=== PATIENT | male | born 1955 | race Caucasian/White ===

== ENCOUNTER 2017-12-16 05:24 | Inpatient (IN) | payer OTHER ==
[~2017-12-16] VITALS: Ht 167.6 cm; Wt 71.9 kg
[~2017-12-16 05:24] MED LIST: AMLO1TAB3 PO; GLYB-137 PO; LISI1TAB7 PO; OMEP-110 PO
[2017-12-16 06:16] LABS: BASOPHILS # (AUTO) 0.04 x10^3/uL (0-0.1); BASOPHILS % (AUTO) 0 % (0-1); EOSINOPHILS # (AUTO) 0.01 x10^3/uL (0-0.4); EOSINOPHILS % (AUTO) 0 % (1-7); LYMPHOCYTES # (AUTO) 1.09 x10^3/uL (1-3.4); LYMPHOCYTES % (AUTO) 12 % (22-44); MD NO; MEAN CORPUSCULAR HEMOGLOBIN 29.8 pg (27.5-34.5); MEAN CORPUSCULAR HGB CONC 33.9 g/dL (33.2-36.2); MEAN CORPUSCULAR VOLUME 88.1 fL (81-97); MEAN PLATELET VOLUME 7.6 fL (7.4-10.4); MONOCYTES # (AUTO) 0.32 x10^3/uL (0.2-0.8); MONOCYTES % (AUTO) 4 % (2-9); NEUTROPHILS # (AUTO) 7.71 x10^3/uL (1.8-6.8); NEUTROPHILS % (AUTO) 84 % (42-75); PLATELET COUNT 274 x10^3/uL (130-400); RED BLOOD COUNT 4.04 x10^6/uL (4.38-5.82); RED CELL DISTRIBUTION WIDTH 14.7 % (9.4-14.8)
[2017-12-16 06:25] LABS: INTERNATIONAL NORMALIZED RATIO 1.02 (0.93-1.1); PROTHROMBIN TIME 10.5 Seconds (9.6-11.5)
[2017-12-16] MEDS ORDERED: ASPIRIN 81 MG TABLET CHEW PO ONE (06:30)
[2017-12-16] MEDS ORDERED: ASPIRIN 81 MG TABLET EC ONE (06:31)
[2017-12-16] MEDS ORDERED: MECLIZINE CHEWABLE 25 MG TAB ONE (06:32)
[2017-12-16] MEDS ORDERED: MECLIZINE CHEWABLE 25 MG TAB PO ONE (07:00)
[2017-12-16] MEDS ORDERED: GLUCAGON 1 MG IM PRN (08:30)
[2017-12-16] MEDS ORDERED: DEXTROSE 4 GM TAB.CHEW PO PRN (08:30)
[2017-12-16] MEDS ORDERED: ONDANSETRON 4 MG TABLET PO PRN (08:30)
[2017-12-16] MEDS ORDERED: ENALAPRILAT 1.25 MG/ML, 2ML IV PRN (08:30)
[2017-12-16] MEDS ORDERED: ACETAMINOPHEN 650 MG/20.3 ML UDC PO PRN (08:30)
[2017-12-16] MEDS ORDERED: DOCUSATE 100 MG CAPSULE PO PRN (08:30)
[2017-12-16] MEDS ORDERED: POLYETHYLENE GLYCOL 17 GM PACKET PO PRN (08:30)
[2017-12-16] MEDS ORDERED: LABETALOL 5MG/ML, 20ML IV PRN (08:30)
[2017-12-16 08:57] LABS: ALANINE AMINOTRANSFERASE 25 U/L (12-78); ALBUMIN 3.7 g/dL (3.4-5.0); ANION GAP 7 mmol/L (5-15); CALCIUM 7.9 mg/dL (8.5-10.1); CHLORIDE 103 mmol/L (98-107); CREATININE 0.92 mg/dL (0.7-1.3)
[2017-12-16 08:59] LABS: ALKALINE PHOSPHATASE 95 U/L (45-117); BILIRUBIN,TOTAL 0.3 mg/dL (0.2-1.0); TOTAL PROTEIN 7.6 g/dL (6.4-8.2)
[2017-12-16] MEDS: LISINOPRIL PO SCH (09:00)
[2017-12-16] MEDS: GLYBURIDE PO SCH ×2 (09:00→20:32)
[2017-12-16] MEDS: SODIUM CHLORIDE FLUSH 10ML SYR IVF SCH ×2 (09:00→20:27)
[2017-12-16] MEDS: HYDROCHLOROTHIAZIDE PO SCH (09:00)
[2017-12-16] MEDS: METFORMIN HCL PO SCH ×2 (09:00→20:32)
[2017-12-16] MEDS: [UNRECOGNIZED DRUG - OTHER] PO SCH (09:00)
[2017-12-16 09:01] LABS: HEMOGLOBIN A1C 7.2 % (4.2-6.3)
[2017-12-16] MEDS: SODIUM CHLORIDE 0.9% 1,000 ML IV SCH ×2 (10:25→20:28)
[2017-12-16] MEDS: AMLODIPINE 5 MG TABLET PO SCH (10:25)
[2017-12-16] MEDS: ASPIRIN 81 MG TABLET CHEW PO/NG SCH (10:26)
[2017-12-16] MEDS: OMEPRAZOLE 20 MG CAPSULE.DR PO SCH ×2 (10:26→20:27)
[2017-12-16 11:50] VITALS: BP 125/64
[2017-12-16 15:59] VITALS: BP 117/68
[2017-12-16 19:02] VITALS: BP 104/64
[2017-12-16] MEDS: ATORVASTATIN 80 MG TABLET PO SCH (20:27)
[2017-12-16] MEDS ORDERED: INSULIN LISPRO 100 UNITS/ML, PEN SQ-INSULIN SCH (21:00)
[2017-12-16] MEDS: DEXTROSE 50%, 50ML SYRINGE IVPush PRN (23:49)
[2017-12-16 23:56] VITALS: BP 112/65
[2017-12-17] MEDS: DEXTROSE 50%, 50ML SYRINGE IVPush PRN (01:40)
[2017-12-17 02:00] VITALS: BP 103/53
[2017-12-17 05:05] LABS: BASOPHILS # (AUTO) 0.05 x10^3/uL (0-0.1); BASOPHILS % (AUTO) 1 % (0-1); EOSINOPHILS # (AUTO) 0.12 x10^3/uL (0-0.4); EOSINOPHILS % (AUTO) 2 % (1-7); LYMPHOCYTES # (AUTO) 1.99 x10^3/uL (1-3.4); LYMPHOCYTES % (AUTO) 35 % (22-44); MD NO; MEAN CORPUSCULAR HEMOGLOBIN 29.4 pg (27.5-34.5); MEAN CORPUSCULAR HGB CONC 33.1 g/dL (33.2-36.2); MEAN CORPUSCULAR VOLUME 88.9 fL (81-97); MEAN PLATELET VOLUME 7.4 fL (7.4-10.4); MONOCYTES # (AUTO) 0.56 x10^3/uL (0.2-0.8); MONOCYTES % (AUTO) 10 % (2-9); NEUTROPHILS # (AUTO) 2.95 x10^3/uL (1.8-6.8); NEUTROPHILS % (AUTO) 52 % (42-75); PLATELET COUNT 253 x10^3/uL (130-400); RED CELL DISTRIBUTION WIDTH 15.3 % (9.4-14.8)
[2017-12-17 05:11] LABS: ALBUMIN 3.1 g/dL (3.4-5.0); ANION GAP 8 mmol/L (5-15); CHLORIDE 104 mmol/L (98-107); CHOLESTEROL, TOTAL 87 mg/dL (140-239); CREATININE 0.93 mg/dL (0.7-1.3)
[2017-12-17 05:13] LABS: CHOL/HDL RATIO 2.4; HDL CHOL % 41 % (26-37); HDL CHOLESTEROL (DIRECT) 36 mg/dL (40-60); LDL CHOLESTEROL,CALCULATED 33 mg/dL (54-169); LDL/HDL RATIO 0.9 (0.5-3.0); TRIGLYCERIDES 91 mg/dL (50-200); VLDL CHOLESTEROL 18 mg/dL (0-25)
[2017-12-17] MEDS: SODIUM CHLORIDE 0.9% 1,000 ML IV SCH (06:02)
[2017-12-17] MEDS: INSULIN LISPRO 100 UNITS/ML, PEN SQ-INSULIN SCH ×4 (07:00→20:50)
[2017-12-17] MEDS: HYDROCHLOROTHIAZIDE PO SCH (09:00)
[2017-12-17] MEDS: [UNRECOGNIZED DRUG - OTHER] PO SCH (09:00)
[2017-12-17] MEDS: LISINOPRIL PO SCH (09:00)
[2017-12-17] MEDS: AMLODIPINE 5 MG TABLET PO SCH (09:00)
[2017-12-17 09:25] VITALS: BP 117/66
[2017-12-17 09:33] LABS: % IRON SATURATION 24 % (20-55); IRON LEVEL 65 mcg/dL (65-175); TOTAL IRON BINDING CAPACITY 271 mcg/dL (250-450)
[2017-12-17] MEDS: OMEPRAZOLE 20 MG CAPSULE.DR PO SCH ×2 (09:54→20:50)
[2017-12-17] MEDS: SODIUM CHLORIDE FLUSH 10ML SYR IVF SCH ×2 (09:55→20:50)
[2017-12-17] MEDS: ASPIRIN 81 MG TABLET CHEW PO/NG SCH (09:55)
[2017-12-17 10:38] LABS: HEMOGLOBIN A1C 7.1 % (4.2-6.3)
[2017-12-17 15:46] VITALS: BP 116/72
[2017-12-17 19:39] VITALS: BP 117/68
[2017-12-17] MEDS: ATORVASTATIN 80 MG TABLET PO SCH (20:50)
[2017-12-18 00:47] VITALS: BP 128/71
[2017-12-18] MEDS: INSULIN LISPRO 100 UNITS/ML, PEN SQ-INSULIN SCH ×2 (07:00→11:00)
[2017-12-18 07:05] VITALS: BP 116/69
[2017-12-18] MEDS: ASPIRIN 81 MG TABLET CHEW PO/NG SCH (08:43)
[2017-12-18] MEDS: OMEPRAZOLE 20 MG CAPSULE.DR PO SCH (08:43)
[2017-12-18] MEDS: SODIUM CHLORIDE FLUSH 10ML SYR IVF SCH (08:44)
[2017-12-18] MEDS ORDERED: CARV3.12 PO (12:10)
[2017-12-18] MEDS ORDERED: ASPI-515 PO (12:10)
[2017-12-18] MEDS ORDERED: ATOR-2 PO (12:10)
[2017-12-18] MEDS ORDERED: ACID1TAB3 PO (12:10)
[2017-12-18] MEDS ORDERED: METF10002 PO (12:10)
[2017-12-18 12:15] VITALS: BP 133/67
== END 2017-12-18 14:02 | disposition home or self-care (01) | DRG 69 ==
LOC: ED 07:02 → EDIP 07:03 → ED 07:17 → 4WST 08:09 → DCLOUNGE 12-18 13:38
PROVIDERS: ADMIT Internal Medicine; ATTEND Internal Medicine
DX: G45.9 Transient cerebral ischemic attack, unspecified (principal); E44.0 Moderate protein-calorie malnutrition; D64.9 Anemia, unspecified; E11.649 Type 2 diabetes mellitus with hypoglycemia without coma; E78.5 Hyperlipidemia, unspecified; I10 Essential (primary) hypertension; K21.9 Gastro-esophageal reflux disease without esophagitis; Z68.25 Body mass index [BMI] 25.0-25.9, adult
CPT/HCPCS: 36415; 70450; 70496; 70498; 70551; 72141; 80047; 80048; 80053; 80061; 82040; 82947; 82962; 83036; 83540; 83550; 83735; 84100; 85025; 85610; 85730; 93005; 93306; 92523-GN; J7030

== ENCOUNTER 2020-03-03 14:01 | Observation (INO) | payer MEDICARE, MEDICAID ==
[~2020-03-03] VITALS: Ht 157.5 cm; Wt 69.9 kg
[~2020-03-03 14:01] MED LIST changes: +ACID1TAB3 PO; +ASPI-515 PO; +ATOR-2 PO; +CARV3.12 PO; -GLYB-137 PO; +GLYB1TAB18 PO; +LISI1TAB20 PO; -LISI1TAB7 PO; +METF10007 PO
[2020-03-03 14:53] LABS: BASOPHILS # (AUTO) 0.03 x10^3/uL (0-0.1); BASOPHILS % (AUTO) 1 % (0-1); EOSINOPHILS % (AUTO) 2 % (1-7); LYMPHOCYTES # (AUTO) 2.63 x10^3/uL (1-3.4); LYMPHOCYTES % (AUTO) 40 % (22-44); MD NO; MEAN CORPUSCULAR HEMOGLOBIN 29.5 pg (27.5-34.5); MEAN CORPUSCULAR HGB CONC 32.3 g/dL (33.2-36.2); MEAN CORPUSCULAR VOLUME 91.2 fL (81-97); MEAN PLATELET VOLUME 8.1 fL (7.4-10.4); MONOCYTES # (AUTO) 0.55 x10^3/uL (0.2-0.8); MONOCYTES % (AUTO) 8 % (2-9); NEUTROPHILS # (AUTO) 3.31 x10^3/uL (1.8-6.8); NEUTROPHILS % (AUTO) 50 % (42-75); PLATELET COUNT 255 x10^3/uL (130-400); RED BLOOD COUNT 4.27 x10^6/uL (4.38-5.82); RED CELL DISTRIBUTION WIDTH 15.4 % (9.4-14.8)
[2020-03-03] MEDS ORDERED: ASPIRIN 81 MG TABLET CHEW PO ONE (15:00)
[2020-03-03] MEDS ORDERED: ASPIRIN 81 MG TABLET CHEW ONE (15:02)
[2020-03-03 15:05] LABS: ALANINE AMINOTRANSFERASE 26 U/L (12-78); ALBUMIN 3.9 g/dL (3.4-5.0); ANION GAP 5 mmol/L (5-15); CALCIUM 9.3 mg/dL (8.5-10.1); CHLORIDE 104 mmol/L (98-107); CREATININE 1.19 mg/dL (0.7-1.3)
[2020-03-03 15:10] LABS: ALKALINE PHOSPHATASE 97 U/L (45-117); BILIRUBIN,TOTAL 0.6 mg/dL (0.2-1.0); TOTAL PROTEIN 7.5 g/dL (6.4-8.2); TROPONIN I < 0.015 ng/mL (0.000-0.045)
--- NOTE | 2020-03-03 16:00 | NUR ---
PT RESTING UPRIGHT ON GURNEY. AWAKE AND COMFORTABLE. COMPLAINTS OF INTERMITTENT PAIN BUT TOLERABLE AT THIS TIME. COMFORT MEASURES ADDRESSED, CALL LIGHT WITHIN REACH.
[2020-03-03] MEDS ORDERED: LISI-170 PO (16:32)
[2020-03-03] MEDS ORDERED: SUCR1TAB PO (16:32)
[2020-03-03] MEDS ORDERED: ACYC-114 PO (16:32)
--- NOTE | 2020-03-03 17:53 | NUR ---
Pt to be admitted to TELE, room 514. Report called to ZAN.
[2020-03-03] MEDS ORDERED: ENOXAPARIN 40 MG/0.4 ML SQ SCH (18:00)
[2020-03-03] MEDS ORDERED: DEXTROSE 4 GM TAB.CHEW PO PRN (18:00)
[2020-03-03] MEDS ORDERED: ALBUTEROL HFA 90 MCG/SPRAY INH PRN (18:00)
[2020-03-03] MEDS ORDERED: NITROGLYCERIN 0.4 MG BOTTLE (25 TABS) SL PRN (18:00)
[2020-03-03] MEDS ORDERED: GLUCAGON 1 MG IM PRN (18:00)
[2020-03-03] MEDS ORDERED: KETOROLAC 30 MG/1 ML IV PRN (18:00)
[2020-03-03] MEDS ORDERED: POLYETHYLENE GLYCOL 17 GM PACKET PO PRN (18:00)
[2020-03-03] MEDS ORDERED: MAALOX/HYOSCYAMINE/LIDOCAINE 45 ML BTL PO PRN (18:00)
[2020-03-03] MEDS ORDERED: MAGNESIUM SULFATE 3 GM in SODIUM CHLORIDE 0.9% 100 ML IV ONE (18:00)
[2020-03-03] MEDS ORDERED: LABETALOL 5MG/ML, 20ML IVPush PRN (18:00)
[2020-03-03] MEDS ORDERED: ENALAPRILAT 1.25 MG/ML, 2ML IVPush PRN (18:00)
[2020-03-03] MEDS ORDERED: ONDANSETRON ODT 4 MG PO PRN (18:00)
[2020-03-03] MEDS ORDERED: DEXTROSE 50%, 50ML SYRINGE IVPush PRN (18:00)
[2020-03-03] MEDS ORDERED: ONDANSETRON 2MG/ML, 2ML IVPush PRN (18:00)
[2020-03-03] MEDS ORDERED: BISACODYL 10 MG SUPP PR PRN (18:00)
[2020-03-03] MEDS ORDERED: ACETAMINOPHEN 325 MG TABLET PO PRN (18:00)
[2020-03-03 18:27] VITALS: BP 150/75
[2020-03-03] MEDS: CARVEDILOL 3.125 MG TABLET PO SCH (20:20)
[2020-03-03] MEDS: ACYCLOVIR 400 MG TABLET PO SCH (20:20)
[2020-03-03] MEDS: SUCRALFATE 1 GM TABLET PO SCH (20:20)
[2020-03-03 20:21] LABS: TROPONIN I < 0.015 ng/mL (0.000-0.045)
[2020-03-03] MEDS: FAMOTIDINE 20 MG TABLET PO SCH (20:21)
[2020-03-03] MEDS: SODIUM CHLORIDE FLUSH 10ML SYR IVF SCH (20:23)
[2020-03-03 20:24] VITALS: BP 156/76
[2020-03-03] MEDS: INSULIN LISPRO 100 UNITS/ML, PEN SQ-INSULIN SCH (21:00)
[2020-03-03] MEDS ORDERED: ATORVASTATIN 80 MG TABLET PO SCH (21:00)
[2020-03-04 01:00] VITALS: BP 125/69
[2020-03-04 02:29] LABS: ANION GAP 7 mmol/L (5-15); CALCIUM 8.6 mg/dL (8.5-10.1); CHLORIDE 106 mmol/L (98-107); CHOLESTEROL, TOTAL 102 mg/dL (140-239); TRIGLYCERIDES 80 mg/dL (50-200); VLDL CHOLESTEROL 16 mg/dL (0-25)
[2020-03-04 02:31] LABS: HDL CHOL % 33 % (26-37); HDL CHOLESTEROL (DIRECT) 34 mg/dL (40-60); LDL CHOLESTEROL,CALCULATED 52 mg/dL (54-169); LDL/HDL RATIO 1.5 (0.5-3.0)
[2020-03-04 02:38] LABS: TROPONIN I < 0.015 ng/mL (0.000-0.045)
[2020-03-04] MEDS: INSULIN LISPRO 100 UNITS/ML, PEN SQ-INSULIN SCH (07:59)
[2020-03-04] MEDS ORDERED: metFORMIN 500 MG TABLET PO SCH (08:00)
[2020-03-04] MEDS: ACYCLOVIR 400 MG TABLET PO SCH (08:01)
[2020-03-04] MEDS: FAMOTIDINE 20 MG TABLET PO SCH (08:01)
[2020-03-04] MEDS: SODIUM CHLORIDE FLUSH 10ML SYR IVF SCH (08:01)
[2020-03-04] MEDS: SUCRALFATE 1 GM TABLET PO SCH (08:01)
[2020-03-04 08:02] VITALS: BP 125/71
[2020-03-04] MEDS ORDERED: LISINOPRIL 10 MG TABLET PO SCH (09:00)
[2020-03-04] MEDS ORDERED: SENNA/DOCUSATE TABLET PO SCH (09:00)
[2020-03-04] MEDS ORDERED: ASPIRIN 81 MG TABLET EC PO SCH (09:00)
[2020-03-04] MEDS ORDERED: OMEP-110 PO (09:40)
[2020-03-04] MEDS: CARVEDILOL 3.125 MG TABLET PO SCH (10:52)
[2020-03-04] MEDS ORDERED: MAALOX/HYOSCYAMINE/LIDOCAINE 45 ML BTL PO ONE (11:00)
== END 2020-03-04 11:17 | disposition home or self-care (01) ==
LOC: ED 15:21 → EDIP 16:05 → INTOOBSV 16:05 → 5SO 17:50
PROVIDERS: ADMIT Internal Medicine; ATTEND Internal Medicine
DX: R07.89 Other chest pain (principal); E83.42 Hypomagnesemia; E11.65 Type 2 diabetes mellitus with hyperglycemia; I10 Essential (primary) hypertension; E78.5 Hyperlipidemia, unspecified; K21.9 Gastro-esophageal reflux disease without esophagitis; I42.9 Cardiomyopathy, unspecified; K59.09 Other constipation; Z79.82 Long term (current) use of aspirin; Z79.899 Other long term (current) drug therapy; Z79.84 Long term (current) use of oral hypoglycemic drugs
CPT/HCPCS: 36415; 71045; 80048; 80053; 80061; 82962; 83036; 83690; 83735; 84484; 85025; 93005; 93017; 96365; 96366; 99285; G0378; J3475